=== PATIENT | female | born 1960 | race Caucasian/White ===

== ENCOUNTER 2017-04-25 12:21 | Emergency (ER) | payer OTHER ==
[2017-04-25 12:44] LABS: APPEARANCE,URINE Clear (CLEAR); BILIRUBIN,URINE Negative (NEGATIVE); COLOR,URINE Yellow (YELLOW); GLUCOSE, URINE (UA) Negative (NEGATIVE); KETONES,URINE Negative (NEGATIVE); LEUKOCYTE ESTERASE ,URINE Trace (NEGATIVE); NITRATE,URINE Negative (NEGATIVE); OCCULT BLOOD,URINE Trace (NEGATIVE); PROTEIN,URINE Negative (NEGATIVE)
[2017-04-25 12:46] LABS: BACTERIA,URINE Rare /HPF (None Seen); MUCUS,URINE Rare LPF (None Seen); RBC,URINE 0-1 /HPF (0-1); SQUAMOUS EPITHELIAL CELL,UR Rare /LPF (0-2)
[2017-04-25 12:52] LABS: BASOPHILS % (AUTO) 0.2 % (0.0-5.0); LYMPHOCYTES % (AUTO) 11.6 % (21.0-51.0); MEAN CORPUSCULAR HEMOGLOBIN 29.5 pg (27.0-33.0); MEAN CORPUSCULAR HGB CONC 34.2 g/dL (32.0-36.0); MEAN CORPUSCULAR VOLUME 86.1 fL (79-99); MONOCYTES % (AUTO) 6.3 % (3.0-13.0); NEUTROPHILS % (AUTO) 81.9 % (40.0-77.0); PLATELET COUNT (AUTO) 328 K/uL (130-400); RED BLOOD CELL COUNT(AUTO) 4.76 MIL/uL (4.00-5.50); RED CELL DISTRIBUTION WIDTH 13.2 % (11.0-15.5); WHITE BLOOD COUNT (AUTO) 14.8 K/uL (4.8-10.8)
[2017-04-25] MEDS ORDERED: KETOROLAC TROMETHAMINE 30MG/ML ONE (12:52)
[2017-04-25] MEDS ORDERED: ONDANSETRON HCL 4 MG/2 ML VIAL ONE (12:52)
[2017-04-25 13:00] LABS: CREATININE 1.1 mg/dL (0.5-1.5); POTASSIUM 4.1 mmol/L (3.5-5.1)
[2017-04-25 13:05] LABS: ALBUMIN 4.4 g/dL (3.5-5.0); BILIRUBIN,TOTAL 0.5 mg/dL (0.2-1.0)
[2017-04-25] MEDS ORDERED: TAMSULOSIN HCL 0.4 MG CAP.ER.24H ONE (14:58)
[2017-04-25] MEDS ORDERED: CEFTRIAXONE SODIUM 1 GM ONE (14:58)
== END 2017-04-25 15:28 | disposition home or self-care (01) ==
LOC: EDH 12:21
DX: N13.2 Hydronephrosis with renal and ureteral calculous obstruction (principal)
CPT/HCPCS: 36415; 74176; 80053; 81001; 83690; 85025; 96361; 96374; 96375; 99285; J0696; J1885; J2405

== ENCOUNTER 2017-04-27 17:48 | Inpatient (IN) | payer OTHER ==
[~2017-04-27] VITALS: Ht 172.7 cm; Wt 91.2 kg
[2017-04-27 18:48] LABS: APPEARANCE,URINE Clear (CLEAR); BILIRUBIN,URINE Negative (NEGATIVE); COLOR,URINE Yellow (YELLOW); GLUCOSE, URINE (UA) Negative (NEGATIVE); KETONES,URINE 15 mg/dL (NEGATIVE); LEUKOCYTE ESTERASE ,URINE Trace (NEGATIVE); NITRATE,URINE Negative (NEGATIVE); OCCULT BLOOD,URINE Small (NEGATIVE); PROTEIN,URINE Negative (NEGATIVE); UROBILINOGEN,URINE 0.2 mg/dL (0.2-1.0)
[2017-04-27] MEDS ORDERED: MORPHINE SULFATE 8 MG/ML VIAL ONE ×2 (18:52→21:08)
[2017-04-27 19:01] LABS: BASOPHILS % (AUTO) 0.3 % (0.0-5.0); EOSINOPHILS % (AUTO) 0.2 % (0.0-8.0); HEMATOCRIT 34.4 % (36-48); LYMPHOCYTES % (AUTO) 9.7 % (21.0-51.0); MEAN CORPUSCULAR HEMOGLOBIN 29.1 pg (27.0-33.0); MEAN CORPUSCULAR HGB CONC 33.9 g/dL (32.0-36.0); MEAN CORPUSCULAR VOLUME 85.8 fL (79-99); MONOCYTES % (AUTO) 5.6 % (3.0-13.0); NEUTROPHILS % (AUTO) 84.2 % (40.0-77.0); PLATELET COUNT (AUTO) 297 K/uL (130-400); RED BLOOD CELL COUNT(AUTO) 4.01 MIL/uL (4.00-5.50); RED CELL DISTRIBUTION WIDTH 13.4 % (11.0-15.5); WHITE BLOOD COUNT (AUTO) 12.8 K/uL (4.8-10.8)
[2017-04-27 19:09] LABS: CREATININE 1.3 mg/dL (0.5-1.5); POTASSIUM 4.1 mmol/L (3.5-5.1)
[2017-04-27 19:11] LABS: BACTERIA,URINE None Seen /HPF (None Seen); RBC,URINE 0-1 /HPF (0-1)
[2017-04-27 19:14] LABS: ALBUMIN 3.7 g/dL (3.5-5.0); BILIRUBIN,TOTAL 0.7 mg/dL (0.2-1.0); TOTAL PROTEIN, SERUM 7.2 g/dL (6.0-8.3)
[2017-04-27] MEDS ORDERED: BISACODYL 10 MG SUPP.RECT RC ONE (21:54)
[2017-04-27] MEDS ORDERED: KETOROLAC TROMETHAMINE 15MG/ML ONE (22:41)
[2017-04-27] MEDS ORDERED: SODIUM CHLORIDE 0.9% 500ML 500 ML IV ONE (22:42)
[2017-04-28] VITALS (7 sets, daily range): BP systolic 101–122; BP diastolic 61–77
[2017-04-28] MEDS ORDERED: LACTATED RINGERS 1000ML 1,000 ML IV ONE (00:55)
[2017-04-28] MEDS ORDERED: HYDROMORPHONE HCL 2 MG/ML VIAL IVP PRN (02:15)
[2017-04-28] MEDS: LACTATED RINGERS 1000ML 1,000 ML IV SCH ×5 (02:21→23:19)
[2017-04-28] MEDS ORDERED: ONDANSETRON HCL 4 MG/2 ML VIAL IV PRN (02:30)
[2017-04-28] MEDS ORDERED: MORPHINE SULFATE 4 MG/1ML SYG IM PRN (02:30)
[2017-04-28] MEDS ORDERED: ACETAMINOPHEN 325 MG TAB PO PRN (02:30)
[2017-04-28] MEDS ORDERED: HYDRALAZINE HCL 20 MG/ML VIAL IV PRN (02:30)
[2017-04-28] MEDS ORDERED: HYDROMORPHONE 4MG/ML 1ML VIAL IVP ONE (03:30)
[2017-04-28] MEDS ORDERED: HYDROMORPHONE 1 MG/1 ML AMP ONE (03:56)
[2017-04-28] MEDS ORDERED: [UNRECOGNIZED DRUG - OTHER] PO (05:57)
[2017-04-28] MEDS ORDERED: ATOR40TA69 PO (05:57)
[2017-04-28] MEDS ORDERED: CHOL200012 PO (05:57)
[2017-04-28] MEDS ORDERED: TELM1TAB31 PO (05:57)
[2017-04-28] MEDS: PANTOPRAZOLE SODIUM 40 MG TABLET.DR PO SCH (08:51)
[2017-04-28] MEDS: FAMOTIDINE 20MG TAB 20 MG TAB PO SCH ×2 (08:51→20:02)
[2017-04-28] MEDS: ACETAMINOPHEN-CODEINE 300/30MG TAB PO PRN ×2 (08:51→23:19)
[2017-04-28] MEDS ORDERED: CEFTRIAXONE 1GM/D5W 50ML 50 ML IV SCH (14:30)
[2017-04-28] MEDS: CEFTRIAXONE SODIUM 1 GM IVP SCH (15:17)
[2017-04-28] MEDS: KETOROLAC TROMETHAMINE 15MG/ML IV PRN (20:02)
[2017-04-29] VITALS (24 sets, daily range): BP systolic 79–136; BP diastolic 46–87
[2017-04-29] MEDS: KETOROLAC TROMETHAMINE 15MG/ML IV PRN (03:38)
[2017-04-29 05:40] LABS: BASOPHILS % (AUTO) 0.3 % (0.0-5.0); EOSINOPHILS % (AUTO) 2.1 % (0.0-8.0); LYMPHOCYTES % (AUTO) 27.9 % (21.0-51.0); MEAN CORPUSCULAR HEMOGLOBIN 29.3 pg (27.0-33.0); MEAN CORPUSCULAR HGB CONC 34.2 g/dL (32.0-36.0); MEAN CORPUSCULAR VOLUME 85.5 fL (79-99); MONOCYTES % (AUTO) 9.6 % (3.0-13.0); NEUTROPHILS % (AUTO) 60.1 % (40.0-77.0); PLATELET COUNT (AUTO) 245 K/uL (130-400); RED BLOOD CELL COUNT(AUTO) 3.39 MIL/uL (4.00-5.50); RED CELL DISTRIBUTION WIDTH 13.5 % (11.0-15.5); WHITE BLOOD COUNT (AUTO) 7.1 K/uL (4.8-10.8)
[2017-04-29 05:46] LABS: CREATININE 0.8 mg/dL (0.5-1.5); POTASSIUM 3.1 mmol/L (3.5-5.1)
[2017-04-29] MEDS: FAMOTIDINE 20MG TAB 20 MG TAB PO SCH (09:00)
[2017-04-29] MEDS: PANTOPRAZOLE SODIUM 40 MG TABLET.DR PO SCH (09:00)
[2017-04-29] MEDS: LACTATED RINGERS 1000ML 1,000 ML IV SCH ×3 (09:04→11:58)
[2017-04-29] MEDS ORDERED: GLYCOPYRROLATE 0.2 MG/ML 5 ML VIAL ONE (09:23)
[2017-04-29] MEDS ORDERED: LIDOCAINE PF 2% 5ML ABBOJECT ONE (09:23)
[2017-04-29] MEDS ORDERED: PROPOFOL 10 MG/ML 20ML VIAL IV ONE (09:23)
[2017-04-29] MEDS ORDERED: MIDAZOLAM HCL 1 MG/ML 2ML VIAL ONE (09:23)
[2017-04-29] MEDS ORDERED: ONDANSETRON HCL 4 MG/2 ML VIAL ONE (09:23)
[2017-04-29] MEDS ORDERED: DEXAMETHASONE SOD PHOSPHATE 10MG/ML 1ML VIAL ONE (09:23)
[2017-04-29] MEDS ORDERED: FENTANYL CITRATE PF 50 MCG/1 ML 2ML VIAL ONE (09:24)
[2017-04-29] MEDS ORDERED: ISOVUE-370 50ML VIAL IV ONE (09:41)
[2017-04-29] MEDS ORDERED: IPRATROPIUM/ALBUTEROL SULFATE 3 ML SOLUTION IH ONE (10:42)
[2017-04-29] MEDS: CEFTRIAXONE SODIUM 1 GM IVP SCH (17:38)
== END 2017-04-29 16:50 | disposition home or self-care (01) | DRG 660 ==
LOC: EDH 17:48 → OBSVTOIN 22:11 → INTOOBSV 22:11 → EDHIP 22:11 → WSH 04-28 01:40
PROVIDERS: ADMIT Family Medicine; ATTEND Family Medicine
PROC: 0T768ZZ Dilation of Right Ureter, Via Natural or Artificial Opening Endoscopic (ICD-10-PCS; principal; 2017-04-29 09:00)
DX: N13.2 Hydronephrosis with renal and ureteral calculous obstruction (principal); E66.9 Obesity, unspecified; D72.828 Other elevated white blood cell count; N23 Unspecified renal colic; D72.829 Elevated white blood cell count, unspecified; E78.5 Hyperlipidemia, unspecified; G47.33 Obstructive sleep apnea (adult) (pediatric); R31.0 Gross hematuria; Z68.30 Body mass index [BMI] 30.0-30.9, adult; Z90.710 Acquired absence of both cervix and uterus
CPT/HCPCS: 36415; 74018; 76000; 76770; 80048; 80053; 81001; 83690; 85025; 94640; A4218; A4354; C1758; C1894; J0696; J1100; J1170; J1885; J2001; J2250; J2270; J2405; J2704; J3010; J3490; J7040; J7120; Q9967